=== PATIENT | male | born 1965 | race Caucasian/White ===

== ENCOUNTER 2019-07-13 12:06 | Emergency (ER) | payer MEDICAID ==
[~2019-07-13] VITALS: Ht 167.6 cm; Wt 80.0 kg
[2019-07-13] MEDS ORDERED: TRAM50TA2 PO (13:11)
[2019-07-13 13:20] VITALS: BP 142/76
== END 2019-07-13 13:21 | disposition home or self-care (01) ==
LOC: ER 12:06
DX: M25.561 Pain in right knee (principal); M25.562 Pain in left knee; Z59.0 Homelessness
CPT/HCPCS: 99283

== ENCOUNTER 2024-07-08 11:45 | Emergency (ER) | payer MEDICAID ==
[~2024-07-08] VITALS: Ht 167.6 cm; Wt 59.1 kg
[2024-07-08] MEDS ORDERED: CHLO25CA10 PO (13:46)
[2024-07-08] MEDS: chlordiazePOXIDE 25mg capsule PO ONE (13:56)
[2024-07-08 14:16] VITALS: BP 129/78; PULSE 89; RESP 16; TEMP 98.1; O2SAT 99
== END 2024-07-08 14:19 | disposition home or self-care (01) ==
LOC: ER 11:46
DX: F41.9 Anxiety disorder, unspecified (principal); F10.939 Alcohol use, unspecified with withdrawal, unspecified; G89.29 Other chronic pain; Z88.2 Allergy status to sulfonamides; Z60.2 Problems related to living alone
CPT/HCPCS: 99283

== ENCOUNTER 2024-07-14 19:04 | Emergency (ER) | payer MEDICAID ==
[~2024-07-14] VITALS: Ht 162.6 cm; Wt 54.2 kg
[~2024-07-14 19:04] MED LIST: CHLO25CA10 PO
[2024-07-14 19:09] VITALS: BP 138/99; PULSE 90; RESP 18; TEMP 98.1; O2SAT 100
== END 2024-07-14 20:46 | disposition home or self-care (01) ==
LOC: ER 19:05
DX: F10.10 Alcohol abuse, uncomplicated (principal); F41.9 Anxiety disorder, unspecified; F17.200 Nicotine dependence, unspecified, uncomplicated; Z88.2 Allergy status to sulfonamides; Z88.1 Allergy status to other antibiotic agents; Y90.9 Presence of alcohol in blood, level not specified
CPT/HCPCS: 99281

== ENCOUNTER 2024-07-29 16:54 | Emergency (ER) | payer MEDICAID ==
[~2024-07-29] VITALS: Ht 167.6 cm; Wt 53.2 kg
[2024-07-29 17:58] LABS: BASOPHILS % (AUTO) 0.6 % (0-1); EOSINOPHILS # (AUTO) 0.5 X10'3 (0-0.9); EOSINOPHILS % (AUTO) 7.3 % (0-6); HEMATOCRIT 38.6 % (42.0-52.0); HEMOGLOBIN 13.1 g/dl (14.0-17.9); LYMPHOCYTES # (AUTO) 1.4 X10'3 (1.1-4.8); LYMPHOCYTES % (AUTO) 18.2 % (21-51); MEAN CORPUSCULAR HEMOGLOBIN 34.6 PG (27.0-31.0); MEAN CORPUSCULAR VOLUME 101.7 FL (78-98); MEAN PLATELET VOLUME 6.9 FL (7.4-10.4); MONOCYTES # (AUTO) 0.5 X10'3 (0-0.9); MONOCYTES % (AUTO) 7.2 % (2-12); NEUTROPHILS % (AUTO) 66.7 % (42-75); PLATELET COUNT 311 X10'3 (140-440); RED CELL DISTRIBUTION WIDTH 14.2 % (11.5-14.5); WHITE BLOOD COUNT 7.4 X10'3 (4.5-11.0)
[2024-07-29 18:12] LABS: ALANINE AMINOTRANSFERASE 38 U/L (12-78); ALBUMIN 3.6 G/DL (3.4-5.0); ALBUMIN/GLOBULIN RATIO 1.2 (1.1-1.5); ALKALINE PHOSPHATASE 97 IU/L (46-116); ANION GAP 10 (8-16); ASPARTATE AMINO TRANSFERASE 32 U/L (10-37); BILIRUBIN,TOTAL 0.3 MG/DL (0.1-1.0); BLOOD UREA NITROGEN 5 MG/DL (7-18); BUN/CREATININE RATIO 7.4 (10.0-20.0); CALCIUM 8.7 MG/DL (8.5-10.1); CHLORIDE 107 MMOL/L (99-107); CREATININE 0.68 MG/DL (0.60-1.10); GLUCOSE 98 MG/DL (70-104); POTASSIUM 3.8 MMOL/L (3.5-5.1); SODIUM 143 MMOL/L (135-145); TOTAL CARBON DIOXIDE 26.3 MMOL/L (24-32); TOTAL PROTEIN 6.5 G/DL (6.4-8.2); eCRCL 87 ML/MIN; eGFR > 90 ML/MIN
[2024-07-29 18:21] LABS: PRO BRAIN NATRIURETIC PEPTIDE 184 PG/ML (0-125)
[2024-07-29 20:04] VITALS: BP 143/85; PULSE 91; RESP 20; TEMP 98.9; O2SAT 96
[2024-07-29] MEDS: dexamethasone 4mg/ml inj IM ONE (20:37)
[2024-07-29] MEDS: triamcinolone acetonide 40mg/ml inj IM ONE (20:37)
== END 2024-07-29 20:38 | disposition home or self-care (01) ==
LOC: ER 16:55
DX: R07.89 Other chest pain (principal); M79.603 Pain in arm, unspecified; R21 Rash and other nonspecific skin eruption; F32.A Depression, unspecified; Z88.2 Allergy status to sulfonamides; Z88.1 Allergy status to other antibiotic agents
CPT/HCPCS: 36415; 71045; 80053; 83880; 84484; 85025; 93005; 96372; 99285; J1100; J3301